=== PATIENT | female | born 1995 | race Two or more races ===

== ENCOUNTER 2022-05-01 05:25 | Inpatient (IN) | payer MEDICAID ==
[2022-05-01] MEDS: Oxytocin/0.9 % Sodium Chloride 30 UNIT/500 ML BAG IV SCH ×2 (05:38→06:09)
[2022-05-01] MEDS ORDERED: Sodium Chloride 0.9% 10 ML Syringe FLUSH PRN (05:47)
[2022-05-01] MEDS ORDERED: Water For Irrigation,Sterile 1,000 ML Container IRR PRN (05:47)
[2022-05-01] MEDS ORDERED: Sodium Chloride 0.9% 2.5 ML Syringe FLUSH PRN (05:47)
[2022-05-01] MEDS ORDERED: Sodium Chloride 0.9% 20 ML SDV IV PRN (05:47)
[2022-05-01] MEDS ORDERED: Tranexamic Acid 1,000 MG in Sodium Chloride 0.9% 100 ML IV PRN (05:47)
[2022-05-01] MEDS ORDERED: Methylergonovine 0.2 MG/1 ML Amp IM PRN (05:47)
[2022-05-01] MEDS ORDERED: Lidocaine 1% 50 ML MDV INJECT PRN (05:47)
[2022-05-01] MEDS ORDERED: Misoprostol 200 MCG Tab PO PRN (05:47)
[2022-05-01] MEDS ORDERED: Carboprost Tromethamine 250 MCG/1 ML Amp IM PRN (05:47)
[2022-05-01] MEDS ORDERED: Butorphanol 1 MG/ML SDV IVPUSH PRN (05:47)
[2022-05-01] MEDS ORDERED: Lactated Ringers 1,000 ML IV SCH (06:00)
[2022-05-01] MEDS ORDERED: Witch Hazel Medicated Pads 40/Jar TOP PRN (07:39)
[2022-05-01] MEDS ORDERED: Benzocaine/Menthol 20%-0.5% Spray 78 GM Cannister TOP PRN (07:39)
[2022-05-01] MEDS ORDERED: Acetaminophen 500 MG Tab PO PRN (07:39)
[2022-05-01] MEDS ORDERED: Ibuprofen 400 MG Tab PO PRN (07:39)
[2022-05-01] MEDS ORDERED: Bisacodyl 10 MG Supp RECTAL PRN (07:39)
[2022-05-01] MEDS ORDERED: Docusate Sodium 100 MG Cap PO PRN (07:39)
[2022-05-01] MEDS ORDERED: Lanolin 100% Cream 7 GM Tube TOP PRN (07:39)
[2022-05-01] MEDS: Acetaminophen 500 MG Tab PO PRN ×2 (09:58→18:25)
[2022-05-01] MEDS: Ibuprofen 800 MG Tab PO PRN (23:03)
[2022-05-02] MEDS: Acetaminophen 500 MG Tab PO PRN ×2 (08:10→17:54)
[2022-05-02] MEDS: Iron Polysaccharides Complex 150 MG Cap PO SCH (10:06)
[2022-05-02] MEDS: Ibuprofen 800 MG Tab PO PRN (23:30)
[2022-05-03] MEDS: Iron Polysaccharides Complex 150 MG Cap PO SCH (08:38)
[2022-05-03] MEDS: Acetaminophen 500 MG Tab PO PRN (08:39)
== END 2022-05-03 11:30 | disposition home or self-care (01) | DRG 807 ==
LOC: MW.OB 05:25 → OBSVTOIN 05:28 → MW.OB 08:30
PROVIDERS: ADMIT Obstetrics & Gynecology; ATTEND Obstetrics & Gynecology
PROC: 10E0XZZ Delivery of Products of Conception, External Approach (ICD-10-PCS; principal; 2022-05-01)
DX: O99.02 Anemia complicating childbirth (principal); Z37.0 Single live birth; Z3A.39 39 weeks gestation of pregnancy; Z20.822 Contact with and (suspected) exposure to COVID-19; D64.9 Anemia, unspecified; O99.52 Diseases of the respiratory system complicating childbirth; J45.909 Unspecified asthma, uncomplicated
CPT/HCPCS: 36415; 59025; 59409; 80305-QW; 85014; 85018; 85027; 86592; 86850; 86900; 86901; A9270-GY; J2590; U0002

== ENCOUNTER 2025-04-06 22:14 | Inpatient (IN) | payer MEDICAID ==
[2025-04-06] MEDS ORDERED: Oxytocin/0.9 % Sodium Chloride 30 UNIT/500 ML BAG ONE (23:35)
[2025-04-06] MEDS ORDERED: Lidocaine 1% 50 ML MDV INJECT PRN (23:42)
[2025-04-06] MEDS ORDERED: Carboprost Tromethamine 250 MCG/1 mL Vial IM PRN (23:42)
[2025-04-06] MEDS ORDERED: Butorphanol 1 MG/ML SDV IVPUSH PRN (23:42)
[2025-04-06] MEDS ORDERED: Sodium Chloride 0.9% 2.5 ML Syringe FLUSH PRN (23:42)
[2025-04-06] MEDS ORDERED: Water For Irrigation,Sterile 1,000 ML Container IRR PRN (23:42)
[2025-04-06] MEDS ORDERED: Sodium Chloride 0.9% 20 ML SDV IV PRN (23:42)
[2025-04-06] MEDS ORDERED: Misoprostol 200 MCG Tab PO PRN (23:42)
[2025-04-06] MEDS ORDERED: Methylergonovine 0.2 MG/1 ML Amp IM PRN (23:42)
[2025-04-06] MEDS ORDERED: Sodium Chloride 0.9% 10 ML Syringe FLUSH PRN (23:42)
[2025-04-06] MEDS ORDERED: Lactated Ringers 1,000 ML IV SCH (23:45)
[2025-04-06] MEDS ORDERED: Oxytocin/0.9 % Sodium Chloride 30 UNIT/500 ML BAG IV SCH (23:45)
[2025-04-06] MEDS: Oxytocin 10 Units/1 ML SDV IM PRN (23:53)
[2025-04-07] MEDS ORDERED: Lanolin 100% Cream 7 GM Tube TOP PRN (00:16)
[2025-04-07] MEDS ORDERED: Docusate Sodium 100 MG Cap PO PRN (00:16)
[2025-04-07 00:22] LABS: HEMOGLOBIN 13.9 g/dL (12.0-16.0); MEAN CORPUSCULAR HEMOGLOBIN 31.9 pg (28.0-32.0); MEAN CORPUSCULAR HGB CONC 35.6 g/dL (32.0-36.0); MEAN CORPUSCULAR VOLUME 89.4 fL (83.0-99.0); PLATELET COUNT,PLT 244 K/uL (150-400); RED BLOOD CELL COUNT 4.36 M/uL (4.10-5.30); WHITE BLOOD CELL COUNT,WBC 11.73 K/uL (3.9-11.3)
[2025-04-07 00:44] LABS: PH,UMBILICAL ARTERIAL 7.345 (7.18-7.38); PH,UMBILICAL VENOUS 7.425 (7.25-7.45)
[2025-04-07] MEDS: Ibuprofen 800 MG Tab PO PRN (05:04)
[2025-04-07] MEDS: Witch Hazel Medicated Pads 40/Jar TOP PRN (05:05)
[2025-04-07] MEDS: Benzocaine/Menthol 20%-0.5% Spray 78 GM Cannister TOP PRN (05:06)
[2025-04-07 06:12] LABS: HEMATOCRIT 36.1 % (37.0-47.0); HEMOGLOBIN 12.7 g/dL (12.0-16.0)
[2025-04-07] MEDS: Acetaminophen 500 MG Tab PO PRN (10:55)
== END 2025-04-08 17:05 | disposition home or self-care (01) | DRG 806 ==
LOC: MW.OBCHECK 22:14 → MW.OB 22:15 → MW.OBCHECK 23:30 → OBSVTOIN 23:45 → MW.OB 04-07 02:28
PROVIDERS: ADMIT Obstetrics & Gynecology Obstetrics; ATTEND Obstetrics & Gynecology Obstetrics
PROC: 10E0XZZ Delivery of Products of Conception, External Approach (ICD-10-PCS; principal; 2025-04-06)
PROC: 3E0P7VZ Introduction of Hormone into Female Reproductive, Via Natural or Artificial Opening (ICD-10-PCS; 2025-04-06)
DX: O48.0 Post-term pregnancy (principal); O99.324 Drug use complicating childbirth; Z37.0 Single live birth; F12.90 Cannabis use, unspecified, uncomplicated; O77.0 Labor and delivery complicated by meconium in amniotic fluid; Z3A.40 40 weeks gestation of pregnancy
CPT/HCPCS: 36415; 59025; 59409; 82803; 85014; 85018; 85027; 86592; 86850; 86900; 86901; A9270-GY; J2590